=== PATIENT | female | born 1985 | race Caucasian/White ===

== ENCOUNTER 2022-05-31 12:38 | Outpatient (CLI) | payer OTHER | END 2022-05-31 13:31 | disposition home or self-care (01) | LOC: NST 12:38 | PROVIDERS: ATTEND Obstetrics & Gynecology Gynecology | DX: Z34.83 Encounter for supervision of other normal pregnancy, third trimester (principal) ==

== ENCOUNTER 2022-07-07 22:40 | Inpatient (IN) | payer OTHER ==
[~2022-07-07] VITALS: Ht 165.1 cm; Wt 83.9 kg
[2022-07-07] MEDS ORDERED: OBSTETRX ONE 38-1-22 PO (22:50)
== END 2022-07-10 11:18 | disposition home or self-care (01) | DRG 807 ==
LOC: LDR 22:40 → OB/GYN 07-08 11:36
PROVIDERS: ADMIT Obstetrics & Gynecology Gynecology; ATTEND Obstetrics & Gynecology Gynecology
PROC: 4A1HXCZ Monitoring of Products of Conception, Cardiac Rate, External Approach (ICD-10-PCS; 2022-07-07)
PROC: 10E0XZZ Delivery of Products of Conception, External Approach (ICD-10-PCS; principal; 2022-07-08)
PROC: 0HQ9XZZ Repair Perineum Skin, External Approach (ICD-10-PCS; 2022-07-08)
PROC: 0UQG7ZZ Repair Vagina, Via Natural or Artificial Opening (ICD-10-PCS; 2022-07-08)
PROC: 0UQMXZZ Repair Vulva, External Approach (ICD-10-PCS; 2022-07-08)
DX: O70.0 First degree perineal laceration during delivery (principal); Z37.0 Single live birth; O71.82 Other specified trauma to perineum and vulva; Z3A.35 35 weeks gestation of pregnancy; Z20.822 Contact with and (suspected) exposure to COVID-19